=== PATIENT | female | born 1985 | race Caucasian/White ===

== ENCOUNTER 2016-11-16 15:01 | Inpatient (IN) | payer OTHER ==
[~2016-11-16] VITALS: Ht 162.6 cm; Wt 60.4 kg
[2016-11-16 15:11] VITALS: BP 120/80; PULSE 79; RESP 15; O2SAT 100
--- NOTE | 2016-11-16 15:20 | ED.REPORT ---
HPI-Psychiatric Illness Date of Service Nov 16, 2016 ED Provider: The patient is a 31 year old female with history of depression, anxiety, and migraines, who was sent to the emergency department by her primary care provider for a mental health evaluation. The patient has been feeling more depressed and is having suicidal ideations. Her symptoms have worsened over the last few months and drastically worsened over the last 3 days. She states, "I am ready to give up." The patient she has more of an intention vs. a plan. She states, "when things get really bad I think about taking a bunch of pills or just running away." She denies homicidal ideation, visual hallucinations or auditory hallucinations. She sees a therapist regularly. She was previously on Cymbalta and felt that she was overdosed on this medication. She has not been on any psychiatric medications for years. She has recently been drinking more alcohol than normal. She does not smoke tobacco or use any illicit drugs. Nursing Notes Stated Complaint: DEPRESSION/SUICIDAL Chief Complaint: Psychiatric Complaint Nursing Notes Reviewed: Yes General Time Seen by MD: 15:20 Chief Complaint Depressed, Suicidal ideation Hx Obtained From: Patient, Primary care provider Arrived By: Walk-in Onset Occurred: More than a week ago... Symptom Duration: Since onset Progression Since Onset: Gradually worsening Severity: Current: No pain currently Severity: Maximum: No pain Recent Healthcare: No recent hospitalization, Recent doctor visit Similar Sx Previous: Yes Risk-Psychiatric Illness Suicide Risk Stratification Suicide Risk Factors - Adult: : Alcohol useNo: Substance abuse RF Statements: Risk factors reviewed Past Medical History Past Medical History Anxiety Depression Migraines Past Surgical History None Family History Noncontributory Smoking History Never Smoker Social History Alcohol Use: "Social" Other Social History: Good social support, Local resident Ambulatory Status Independent Review of Systems Psychiatric: Reports: Anxiety, Change mental status, Depression, Stress, Suicidal ideation, Unable to control self, Denies: Hallucinations, auditory, Hallucinations, visual, Homicidal ideation Complete sys rev & neg: except as marked. Physical Exam Initial Vital Signs Vital Signs (First) Date Time Temp Pulse Resp B/P Pulse Ox O2 Delivery O2 Flow Rate FiO2 11/16/16 15:11 36 79 15 120/80 100 Room Air Initial VS: Reviewed Head / Eyes: Atraumatic, Normocephalic, PERRL ENT: Mucous membranes moist, Conjunctiva normal, No scleral icterus Neck: Supple, Non-tender, Full range of motion Respiratory: Breath sounds normal, Clear to auscultation, No respiratory distress Cardiovascular: Regular rate & rhythm, Heart sounds normal, Intact distal pulses Abdomen / GI: Soft, Non-tender, No guarding, No rebound, No distention Lymphatic: No lymphadenopathy Extremities: Vascular intact, Neuro intact, No swelling, No tenderness Skin: Warm, Dry, No cyanosis General/Constitutional: Awake, Alert, Cooperative Neurologic: Oriented X3, Speech NL, No motor deficits, No sensory deficits, CN II - XII intact, Cerebellar NL, Memory NL, Gait NL Psychiatric: Not homicidal, No hallucinations, Cognitive function NL, Judgment/ insight NL, Thought content NL Abnormal Mood/Affect: Positive: Anxious, Depressed Abnormal Thinking / Perception: Positive: Suicidal, with plan The patient reports multiple plans such as: running away or overdosing on pills. Interpretation & Diagnostics Interpretation & Diagnostics: Urine : negative Urine drug screen: negative Breathalyzer: 0 Lab Results Interpretation Result Diagram: 11/16/16 1610 11/16/16 1610 Test 11/16/16 15:30 11/16/16 16:10 Hold Urine Received (Received) White Blood Count 4.4th/mm3 (3.8-10.1) Red Blood Count 4.21mil/mm3 (3.90-5.20) Hemoglobin 12.7g/dL (12.0-15.6) Hematocrit 37.4% (35.0-46.0) Mean Corpuscular Volume 88.8fL (81-100) Mean Corpuscular Hemoglobin 30.2pg (27.0-35.0) Mean Corpuscular Hemoglobin Concent 34.0% (32.0-37.0) Red Cell Distribution Width 12.3% (12.3-15.4) Platelet Count 328bil/L (150-400) Neutrophils (%) (Auto) 61.9% (40-74) Lymphocytes (%) (Auto) 28.5% (14-46) Monocytes (%) (Auto) 8.0% (4-12) Eosinophils (%) (Auto) 0.7% (0-5) Basophils (%) (Auto) 0.7% (0-3) Sodium Level 137mEq/L (134-144) Potassium Level 3.7mEq/L (3.5-5.2) Chloride Level 100mEq/L (97-108) Carbon Dioxide Level 24mmol/L (18-29) Blood Urea Nitrogen 8mg/dL (6-20) Creatinine 0.59mg/dL (0.57-1.00) Estimat Glomerular Filtration Rate 173mL/min (>59) Glucose Level 116mg/dL (60-99) Calcium Level 9.8mg/dL (8.5-10.1) Total Bilirubin 0.3mg/dL (0.0-1.2) Aspartate Amino Transf (AST/SGOT) 20U/L (0-50) Alanine Aminotransferase (ALT/SGPT) 12U/L (0-32) Alkaline Phosphatase 43U/L (25-150) Total Protein 7.7g/dL (6.4-8.4) Albumin 4.7g/dL (3.4-5.0) Thyroid Stimulating Hormone (TSH) 1.900uIU/mL (0.450-4.500) Re-Eval/Medical Decision Med Decision/Clinical Course Seems to be a good candidate for voluntary inpatient management. We will plan to admit to the care center. Medically clear. Source of Hx: Friend, Private physician Re-Evaluation/Progress : Time of Eval: 17:00 Re-Evaluation/Progress Note: The patient is medically cleared. Consultation #1: Consulted With: maintenance worker Call Returned at: 15:30 Screen Making Technician: Will see patient Consultation #2: Consulted With: maintenance worker Call Returned at: 17:41 Note: The patient will most likely have a bed upstairs in the Care Center. Counseled Regarding: Diagnosis, Lab results, Need for admission Discharge & Departure Impression: Primary Impression: Suicidal ideations )( Condition at Discharge: No danger to others, No homicidal ideation, Clear for psych facility Disposition: ADMITTED TO HOSPITAL Discharge Condition All VS Reviewed: Yes Condition: Stable Scribe Attestation Portions of this note were transcribed by Aleksandra Gaines. I, Dr. Mirza personally performed the history, physical exam and medical decision-making; I reviewed and confirmed the accuracy of the information in the transcribed note. Signed by: Margareth Patel, 11/16/2016 at 1800. Deep Mirza DO Nov 16, 2016 15:20 Aleksandra Gaines Nov 16, 2016 15:27
[2016-11-16 16:20] LABS: BASOPHILS % (AUTO) 0.7 % (0-3); EOSINOPHILS % (AUTO) 0.7 % (0-5); Mean Corpuscular Hemoglobin 30.2 pg (27.0-35.0); Mean Corpuscular Volume 88.8 fL (81-100); NEUTROPHILS % (AUTO) 61.9 % (40-74); Platelet Count 328 bil/L (150-400)
[2016-11-16 18:18] VITALS: BP 104/72; PULSE 64; RESP 20; O2SAT 100
[2016-11-16] MEDS ORDERED: MULT-140 PO (18:26)
[2016-11-16] MEDS ORDERED: CHOL500011 PO (18:26)
[2016-11-16] MEDS ORDERED: IBUP200C PO (18:26)
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
--- NOTE | 2016-11-17 02:13 | NUR ---
Observations 1900 to 0700 Pt arrived on the floor at 19:25 form our ED and was able to complete the intake process. Pt was polite and cooperative with staff. Pt went to her room as soon as her intake process was completed. Pt seemed anxious to be out on the floor. Pt first appeared asleep at 23:30 and was observed every 15 minutes through the night as directed.
[2016-11-17] MEDS ORDERED: LORazepam 1 mg Tablet PO PRN (05:35)
[2016-11-17] MEDS ORDERED: Alum-Mag Hydrox-Simeth 30 mL Suspension PO PRN (05:35)
[2016-11-17] MEDS ORDERED: Magnesium Hydroxide 10 mL Oral Concentration PO PRN (05:35)
[2016-11-17] MEDS ORDERED: Benzocaine-Menthol Lozenge 2/Pkg PO PRN (05:35)
[2016-11-17 10:00] VITALS: BP 118/82; PULSE 81; RESP 17
[2016-11-17] MEDS: ALPRAZolam 0.25 mg Tablet PO SCH ×2 (13:14→20:32)
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
--- NOTE | 2016-11-17 14:42 | NUR ---
Nursing Note [id number] Behavior S/O: Pt in room most of the day except for meals & shower. Pt states, "I'm tired. I didn't sleep very well last night." She c/o a headache at a "7" on a scale of 1-10/10 the worst. She reports it could be a stress headache. Ibuprofen offered, but pt nauseated & vomited in toilet prior to medications being delivered. Hot packs & snack offered to pt. Advised pt to wait until stomach had settled then eat snack before asking RN for ibuprofen. Pt currently laying down again. A: Pt have physical complaints r/t mood. P: Provide supportive environment. Monitor medications & effects.
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
--- NOTE | 2016-11-17 17:07 | NUR ---
Observations [id number] Pt was asleep in bed upon start of shift. Pt did not attend breakfast, and got up later in the morning. She presents as friendly, polite and soft spoken. She attended lunch and dinner, eating an average of 80%. She stated to this staff writer that "I don't feel well." She spent much of the day resting in bed, appearing on the unit a few times to listen to music or use the phone. Pt met with the jose in the evening before dinner. She complained of a headache much of the day. Pt was observed every 15 minutes of shift as directed.
--- NOTE | 2016-11-17 17:38 | NUR ---
spiritual care: pt request conversational visit and prayer. pt self reflective about hopes and also her discontent about being in unit. She described being willing to give it time and is looking forward to her friends visit trista. pt shared that her elissa is sustaining to her, including friend group and that she enjoys solace from scripture sherry psalms. prayer.
--- NOTE | 2016-11-17 21:57 | NUR ---
Nursing note: evening shift/ depression Patient napping in afternoon. Patient awake at dinner, is very soft spoken and polite. Patient continues to c/o mild headache ( she attributes to lack of caffeine) and still a little nauseated. Patient was able to take chamomile tea. Patient visited with elevator repairer apprentice. Patient reports feeling a little better, endorses depression but able to contract no harm and feels safe in hospital. Patient showered at her request. Patient later took small fruit bowl and some crackers. Patient had two female friends come to visit and reports it was very helpful. Patient attended wrap up group, then retired to room. Patient is compliant with HS medication, and encouraged to inform staff if she is unable to sleep
--- NOTE | 2016-11-18 03:25 | NUR ---
Observations 1900 to 0700 Pt was in her room for most of the night. Pt came out to visit with her two visitors and did attend wrap up group. Pt first appeared asleep at 23:30 and was observed every 15 minutes through the night as directed.
--- NOTE | 2016-11-18 06:08 | NUR ---
Sleep 11p-7a Adequate sleep through the night with no noted distress or awakening per protocol checks. She has remained asleep since 2330 for over 7 hours sleep.
[2016-11-18] MEDS ORDERED: FLUO20CA25 PO (11:53)
[2016-11-18] MEDS ORDERED: BUSP10TA2 PO (11:53)
[2016-11-18] MEDS ORDERED: TRAZ-115 PO (11:55)
--- NOTE | 2016-11-18 11:57 | PCM.DIMED ---
Discharge Instructions Date of Service Nov 18, 2016 Dates of Hospitalization Nov 16, 2016 at 18:13 Discharge Diagnosis Discharge Diagnosis AXIS I 1. Major depressive disorder. 2. Posttraumatic stress disorder. AXIS II None. AXIS III None. AXIS IV Moderate. AXIS V 50 Medication Instructions I Strongly encouraged patient to follow up with outpatient care: 1-Recommended patient takes medication as prescribed and not alter this unless under the direct care of a provider. 2-Recommend client refrain from recreational drugs and alcohol while taking psychiatric medications. Diet No restrictions Activity No restrictions Call your provider Fever or Chills Patient Instructions Follow-up in 2 weeks with practitioners: [facility] Follow-up with PCP in: 2 weeks Los Dc MD Nov 18, 2016 11:57
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
--- NOTE | 2016-11-18 15:41 | NUR ---
Discharge- Pt. was discharged to home today at 1230. She had slept 8 plus hours per report. Pt. attended breakfast and morning Mtg., competed her safety plan, and signed all discharge documents. Her prescriptions were faxed to [facility] as she had requested. The Pt. rated her depression and anxiety as 3/10. She denied thoughts of suicide, and was able to articulate how she would use her safety plan should her thoughts change. Follow up appointments were made with the Pt's Insurance Loss Adjuster, and [facility]. She expressed an understand of the follow up medications and plans.
== END 2016-11-18 12:30 | disposition home or self-care (01) | DRG 881 ==
LOC: SED 15:01 → MHC 18:13
PROVIDERS: ADMIT Psychiatry & Neurology Psychiatry; ATTEND Psychiatry & Neurology Psychiatry
DX: F32.9 Major depressive disorder, single episode, unspecified (principal); R45.851 Suicidal ideations; F43.10 Post-traumatic stress disorder, unspecified